=== PATIENT | male | born 1950 | race Caucasian/White ===

== ENCOUNTER 2020-08-16 05:54 | Day surgery (SDC) | payer MEDICARE ==
[2020-08-16] MEDS ORDERED: Dextrose 5%-Lactated Ringers 1,000 ML IV SCH (06:30)
[2020-08-16] MEDS ORDERED: fentaNYL 100 MCG/2 ML SDV ONE (07:45)
[2020-08-16] MEDS ORDERED: Midazolam 1 MG/ML 2 ML SDV ONE (07:45)
[2020-08-16] MEDS ORDERED: Propofol 200 MG/20 ML SDV ONE (07:45)
--- NOTE | 2020-08-20 13:31 | OR ---
DATE OF PROCEDURE: 08/16/2020 SURGEON: Narciso Lezama MD PREOPERATIVE DIAGNOSIS: Diarrhea alternating with constipation. POSTOPERATIVE DIAGNOSES: 1. Diarrhea alternating with constipation. 2. Pandiverticulosis. PROCEDURE: Flexible colonoscopy with random colorectal biopsies to rule out microscopic colitis. ANESTHESIA: IV sedation. INDICATIONS FOR PROCEDURE: This is a 70-year-old male presenting with issues of constipation alternating with frequent bowel movements or diarrhea. Plan is to proceed with colonoscopy with biopsies as indicated. Potential risks including bleeding and perforation were discussed, and the patient wishes to proceed. DETAILS OF PROCEDURE: The patient was taken to the operative room, placed in a left lateral decubitus position. IV sedation was administered, after which the initial digital rectal exam was performed, it was unremarkable. Colonoscope was then passed into the rectum with retroflexion revealing uncomplicated hemorrhoidal columns. Scope was then passed to the level of cecum. The prep was quite good with small amount of liquid stool being present. To that level, there was pandiverticulosis. This was otherwise uncomplicated. Otherwise, no abnormalities were noted. There were no areas of colitis and no polyps or signs of neoplasia. To rule out microscopic colitis, random colorectal biopsies were obtained throughout the length of the colon and rectum and sent for histologic evaluation. Minimal bleeding from biopsy sites was seen and the procedure was then concluded. The patient will be set up for followup with Shane Samuels CNP, [facility] in roughly 2 weeks. Narciso Lezama MD /[id number]
== END 2020-08-16 10:01 | disposition home or self-care (01) ==
LOC: JP.SDS 05:54
PROVIDERS: ATTEND Surgery
DX: K57.30 Diverticulosis of large intestine without perforation or abscess without bleeding (principal); K64.9 Unspecified hemorrhoids; K21.9 Gastro-esophageal reflux disease without esophagitis; Z88.0 Allergy status to penicillin
CPT/HCPCS: 45380; J2250; J2704; J3010; J7121; 88305

== ENCOUNTER 2022-04-21 09:12 | Emergency (ER) | payer MEDICARE ==
[2022-04-21 10:16] LABS: ESTIMATED GFR 79 mL/min (>60)
== END 2022-04-21 10:43 | disposition home or self-care (01) ==
LOC: JP.ED 09:12
DX: K46.9 Unspecified abdominal hernia without obstruction or gangrene (principal); K21.9 Gastro-esophageal reflux disease without esophagitis; Z79.899 Other long term (current) drug therapy; Z88.0 Allergy status to penicillin; Z91.011 Allergy to milk products
CPT/HCPCS: 36415; 80053; 83605; 85025; 99283; 99284

== ENCOUNTER → 2022-04-23 | Day surgery (SDC) | payer MEDICARE ==
[~2022-04-23] MED LIST: Acetaminophen 500 MG Tab PO ONE; Bupivacaine 0.5% 50 ML MDV ONE; Celecoxib 200 MG Cap PO ONE; Dextrose 5%-Lactated Ringers 1,000 ML IV SCH; HYDROmorphone 2 MG Tab PO PRN; Ketorolac 30 MG/ML SDV ONE; Lidocaine 1% with EPINEPHrine 1:100,000 50 ML MDV ONE; Midazolam 1 MG/ML 2 ML SDV ONE; Propofol 200 MG/20 ML SDV ONE; ceFAZolin 2 GM in Sodium Chloride 0.9% 50 ML IV ONE; fentaNYL 250 MCG/5 ML SDV ONE; fentaNYL 50 MCG/ML SDV IVPUSH ONE
== END ==
LOC: JP.SDS 10:34
PROVIDERS: ATTEND Surgery
DX: K40.30 Unilateral inguinal hernia, with obstruction, without gangrene, not specified as recurrent (principal); Z88.0 Allergy status to penicillin; Z88.8 Allergy status to other drugs, medicaments and biological substances; Z01.812 Encounter for preprocedural laboratory examination; Z20.822 Contact with and (suspected) exposure to COVID-19
CPT/HCPCS: 88302; 88305; A9270-GY; C1713; C1781; J0690; J1885; J2250; J2704; J3010; J3490; J7121; U0002